=== PATIENT | male | born 1960 | race Caucasian/White ===

== ENCOUNTER → 2017-07-07 | Outpatient (CLI) | payer OTHER ==
[2014-06-02 08:48] VITALS: BP 135/92
[~2017-07-07] MED LIST: ASPIR LOW81 MG PO; FISH OIL1 IU PO; GLUCOSAMINE/CHONDROI PO
== END ==
LOC: LAB 15:52
DX: R19.7 Diarrhea, unspecified (principal); R68.81 Early satiety; R63.4 Abnormal weight loss

== ENCOUNTER → 2019-01-11 | Outpatient (CLI) | payer OTHER ==
[2014-06-02 08:48] VITALS: BP 135/92
[2019-01-11 07:56] LABS: EOS # 0.1 (0.04-0.40); EOS % 2.1 % (0.0-4.0); HEMATOCRIT 42.3 % (42.0-52.0); HEMOGLOBIN 13.6 g/dL (13.5-18.0); LYMPH# 1.7 (1.50-4.00); MEAN CELL VOLUME 88 fl (78-100); MEAN CORPUSCULAR HEMOGLOBIN 28 pg (27-31); MEAN CORPUSCULAR HGB CONC 32 g/dL (33-37); MEAN PLATELET VOLUME 9.4 fl (7.4-10.4); MONO # 0.8 (0.20-0.80); PLATELET COUNT 281 K/mm3 (130-400); RED BLOOD COUNT 4.82 M/mm3 (4.20-5.60); RED CELL DISTRIBUTION WIDTH 13.8 % (11.5-14.5); WHITE BLOOD COUNT 6.7 K/mm3 (4.8-10.8)
[2019-01-11 08:15] LABS: ALBUMIN 4.2 g/dL (3.5-5.0); CALCIUM 8.9 mg/dL (8.4-10.2); POTASSIUM 4.5 mmol/L (3.6-5.0); TOTAL BILIRUBIN 0.5 mg/dL (0.2-1.3); TOTAL PROTEIN 7.6 g/dL (6.3-8.2)
[2019-01-11 09:09] LABS: ERYTHROCYTE SEDIMENTATION RATE 19 mm/hr (0-20)
[2019-01-12 02:41] LABS: TESTOSTERONE 702 ng/dL (221-716)
== END ==
LOC: LAB 07:28
PROVIDERS: Internal Medicine
DX: Z12.5 Encounter for screening for malignant neoplasm of prostate (principal); Z12.11 Encounter for screening for malignant neoplasm of colon; Z00.00 Encounter for general adult medical examination without abnormal findings; R19.7 Diarrhea, unspecified

== ENCOUNTER → 2020-01-09 | Outpatient (CLI) | payer OTHER ==
[2014-06-02 08:48] VITALS: BP 135/92
[2020-01-09 09:49] LABS: EOS # 0.2 (0.04-0.40); EOS % 2.5 % (0.0-4.0); HEMATOCRIT 42.6 % (42.0-52.0); HEMOGLOBIN 13.1 g/dL (13.5-18.0); MEAN CELL VOLUME 85 fl (78-100); MEAN CORPUSCULAR HEMOGLOBIN 26 pg (27-31); MEAN CORPUSCULAR HGB CONC 31 g/dL (33-37); MEAN PLATELET VOLUME 9.6 fl (7.4-10.4); MONO # 0.7 (0.20-0.80); NEU # 3.5 (1.40-6.50); PLATELET COUNT 313 K/mm3 (130-400); RED BLOOD COUNT 5.03 M/mm3 (4.20-5.60); WHITE BLOOD COUNT 6.3 K/mm3 (4.8-10.8)
[2020-01-09 10:52] LABS: POTASSIUM 4.1 mmol/L (3.5-5.1)
[2020-01-09 10:53] LABS: CALCIUM 8.5 mg/dL (8.3-10.5)
[2020-01-09 10:55] LABS: TOTAL PROTEIN 7.4 g/dL (6.4-8.3)
[2020-01-09 10:56] LABS: TOTAL BILIRUBIN 0.3 mg/dL (0.2-1.2)
[2020-01-09 11:02] LABS: MAGNESIUM 2.05 mg/dL (1.60-2.60)
[2020-01-09 11:59] LABS: PROTHROMBIN TIME 9.1 SECONDS (9.0-12.0); URINE APPEARANCE HAZY; URINE BILIRUBIN NEGATIVE (NEGATIVE); URINE BLOOD NEGATIVE (NEGATIVE); URINE COLOR YELLOW; URINE GLUCOSE NEGATIVE (NEGATIVE); URINE KETONE NEGATIVE (NEGATIVE); URINE LEUKOCYTE ESTERASE NEGATIVE (NEGATIVE); URINE NITRATE NEGATIVE (NEGATIVE); URINE PROTEIN(semi-quant) TRACE mg/dL (NEGATIVE); URINE UROBILINOGEN NORMAL (NORMAL)
[2020-01-09 12:00] LABS: URINE MUCUS PRESENT (NOT PRESENT)
== END ==
LOC: AMSURD 07:32 → RAD 07:32 → LAB 07:32
PROVIDERS: Internal Medicine
DX: Z01.818 Encounter for other preprocedural examination (principal); M19.012 Primary osteoarthritis, left shoulder; M19.011 Primary osteoarthritis, right shoulder

== ENCOUNTER 2020-04-20 10:30 | Outpatient (RCR) | payer OTHER ==
[2014-06-02 08:48] VITALS: BP 135/92
== END 2020-04-22 | disposition still patient (30) ==
LOC: PT
DX: M75.102 Unspecified rotator cuff tear or rupture of left shoulder, not specified as traumatic (principal)

== ENCOUNTER 2020-05-17 08:30 | Outpatient (RCR) | payer OTHER ==
[2014-06-02 08:48] VITALS: BP 135/92
== END 2020-07-23 | disposition still patient (30) ==
LOC: PT
DX: M75.102 Unspecified rotator cuff tear or rupture of left shoulder, not specified as traumatic (principal)

== ENCOUNTER → 2020-10-25 | Outpatient (CLI) | payer OTHER ==
[2014-06-02 08:48] VITALS: BP 135/92
[2020-10-25 10:22] LABS: ALBUMIN 4.2 g/dL (3.4-4.8); POTASSIUM 4.7 mmol/L (3.5-5.1)
[2020-10-25 10:23] LABS: CALCIUM 9.8 mg/dL (8.3-10.5)
[2020-10-25 10:24] LABS: TOTAL PROTEIN 7.5 g/dL (6.2-8.1)
[2020-10-25 10:25] LABS: HEMATOCRIT 40.9 % (42.0-52.0); MEAN CELL VOLUME 84 fl (78-100); MEAN CORPUSCULAR HEMOGLOBIN 27 pg (27-31); MEAN CORPUSCULAR HGB CONC 32 g/dL (33-37); MEAN PLATELET VOLUME 9.2 fl (7.4-10.4); PLATELET COUNT 352 K/mm3 (130-400); RED BLOOD COUNT 4.86 M/mm3 (4.20-5.60); RED CELL DISTRIBUTION WIDTH 13.3 % (11.5-14.5); WHITE BLOOD COUNT 7.7 K/mm3 (4.8-10.8)
[2020-10-25 10:26] LABS: TOTAL BILIRUBIN 0.4 mg/dL (0.2-1.2)
[2020-10-25 10:31] LABS: MAGNESIUM 2.13 mg/dL (1.60-2.60)
[2020-10-25 10:47] LABS: LYMPHOCYTE 32 % (20-51); MONOCYTE 7 % (3-10); NEUTROPHILS 57 % (42-75)
== END ==
LOC: AMSURD 09:54
PROVIDERS: Internal Medicine
DX: Z01.818 Encounter for other preprocedural examination (principal)

== ENCOUNTER → 2021-10-08 | Outpatient (CLI) | payer OTHER ==
[2021-10-08 15:35] LABS: BASO # 0.04 K/mm3 (0.02-0.10); EOS # 0.08 K/mm3 (0.04-0.40); EOS % 0.9 % (0.0-4.0); HEMATOCRIT 38.8 % (42.0-52.0); HEMOGLOBIN 12.2 g/dL (13.5-18.0); LYMPH# 2.54 K/mm3 (1.50-4.00); MEAN CELL VOLUME 84 fl (78-100); MEAN CORPUSCULAR HEMOGLOBIN 27 pg (27-31); MEAN CORPUSCULAR HGB CONC 31 g/dL (33-37); MEAN PLATELET VOLUME 8.1 fl (7.4-10.4); MONO # 0.94 K/mm3 (0.20-0.80); NEU # 5.08 K/mm3 (1.40-6.50); PLATELET COUNT 428 K/mm3 (130-400); RED CELL DISTRIBUTION WIDTH 16.6 % (11.5-14.5); WHITE BLOOD COUNT 8.7 K/mm3 (4.8-10.8)
[2021-10-08 15:45] LABS: POTASSIUM 4.5 mmol/L (3.5-5.1)
[2021-10-08 15:46] LABS: CALCIUM 9.4 mg/dL (8.3-10.5)
[2021-10-08 15:47] LABS: TOTAL PROTEIN 7.3 g/dL (6.2-8.1)
[2021-10-08 15:49] LABS: TOTAL BILIRUBIN 0.3 mg/dL (0.2-1.2)
[2021-10-08 15:53] LABS: DIGOXIN 0.6 ng/mL (0.8-2.0)
[2021-10-08 15:54] LABS: MAGNESIUM 2.25 mg/dL (1.60-2.60)
== END ==
LOC: LAB 15:25
PROVIDERS: Internal Medicine
DX: I48.20 Chronic atrial fibrillation, unspecified (principal)

== ENCOUNTER → 2022-01-24 | Outpatient (CLI) | payer OTHER | LOC: RAD 09:47 | DX: N13.30 Unspecified hydronephrosis (principal) ==

== ENCOUNTER → 2022-07-22 | Outpatient (CLI) | payer OTHER ==
[2022-07-22 14:57] LABS: URINE APPEARANCE HAZY; URINE BILIRUBIN NEGATIVE (NEGATIVE); URINE BLOOD 250 ery/uL (NEGATIVE); URINE COLOR YELLOW; URINE GLUCOSE NEGATIVE (NEGATIVE); URINE KETONE NEGATIVE (NEGATIVE); URINE LEUKOCYTE ESTERASE TRACE (NEGATIVE); URINE NITRATE NEGATIVE (NEGATIVE); URINE PROTEIN(semi-quant) 2+ (NEGATIVE); URINE UROBILINOGEN NORMAL (NORMAL)
[2022-07-22 14:59] LABS: URINE MUCUS PRESENT (NOT PRESENT)
== END ==
LOC: LAB 14:18
PROVIDERS: Nurse Practitioner
DX: R31.9 Hematuria, unspecified (principal)

== ENCOUNTER → 2023-12-30 | Outpatient (CLI) | payer BC | LOC: RAD 09:21 | DX: R10.11 Right upper quadrant pain (principal) ==

== ENCOUNTER → 2024-09-20 | Outpatient (CLI) | payer OTHER, MEDICARE ==
[2024-09-20 11:42] LABS: BASO # 0.03 K/mm3 (0.02-0.10); EOS # 0.29 K/mm3 (0.04-0.40); EOS % 4.1 % (0.0-4.0); HEMATOCRIT 44.2 % (42.0-52.0); HEMOGLOBIN 14.6 g/dL (13.5-18.0); LYMPH# 1.94 K/mm3 (1.50-4.00); MEAN CELL VOLUME 92 fl (78-100); MEAN CORPUSCULAR HEMOGLOBIN 30 pg (27-31); MEAN CORPUSCULAR HGB CONC 33 g/dL (33-37); MEAN PLATELET VOLUME 8.6 fl (7.4-10.4); MONO # 0.67 K/mm3 (0.20-0.80); NEU # 4.19 K/mm3 (1.40-6.50); PLATELET COUNT 259 K/mm3 (130-400); RED BLOOD COUNT 4.82 M/mm3 (4.20-5.60); RED CELL DISTRIBUTION WIDTH 13.4 % (11.5-14.5); WHITE BLOOD COUNT 7.1 K/mm3 (4.8-10.8)
[2024-09-20 11:48] LABS: ALBUMIN 4.2 g/dL (3.4-4.8)
[2024-09-20 11:49] LABS: CALCIUM 9.8 mg/dL (8.3-10.5)
[2024-09-20 11:50] LABS: TOTAL PROTEIN 7.2 g/dL (6.2-8.1)
[2024-09-20 11:52] LABS: TOTAL BILIRUBIN 0.3 mg/dL (0.2-1.2)
[2024-09-20 11:53] LABS: PH-URINE 5.5 (5.0 - 8.0); URINE APPEARANCE CLEAR (CLEAR); URINE BILIRUBIN NEGATIVE (NEGATIVE); URINE BLOOD NEGATIVE (NEGATIVE); URINE COLOR YELLOW (YELLOW); URINE GLUCOSE NEGATIVE (NEGATIVE); URINE KETONE NEGATIVE (NEGATIVE); URINE LEUKOCYTE ESTERASE NEGATIVE (NEGATIVE); URINE MUCUS PRESENT (NOT PRESENT); URINE NITRATE NEGATIVE (NEGATIVE); URINE PROTEIN(semi-quant) NEGATIVE (NEGATIVE); URINE WBC 0-1 /hpf (0-3)
[2024-09-20 11:57] LABS: MAGNESIUM 2.3 mg/dL (1.60-2.60)
== END ==
LOC: LAB 11:25
PROVIDERS: Internal Medicine
DX: Z12.5 Encounter for screening for malignant neoplasm of prostate (principal); I48.91 Unspecified atrial fibrillation; E78.2 Mixed hyperlipidemia; F52.21 Male erectile disorder; R73.03 Prediabetes

== ENCOUNTER → 2024-11-07 | Outpatient (CLI) | payer OTHER, MEDICARE ==
[2024-11-07 17:09] LABS: BASO # 0.03 K/mm3 (0.02-0.10); EOS % 2.4 % (0.0-4.0); HEMATOCRIT 44.4 % (42.0-52.0); HEMOGLOBIN 14.5 g/dL (13.5-18.0); MEAN CELL VOLUME 92 fl (78-100); MEAN CORPUSCULAR HEMOGLOBIN 30 pg (27-31); MEAN CORPUSCULAR HGB CONC 33 g/dL (33-37); MEAN PLATELET VOLUME 8.3 fl (7.4-10.4); MONO # 0.84 K/mm3 (0.20-0.80); PLATELET COUNT 347 K/mm3 (130-400); RED BLOOD COUNT 4.81 M/mm3 (4.20-5.60); RED CELL DISTRIBUTION WIDTH 12.8 % (11.5-14.5); WHITE BLOOD COUNT 8.2 K/mm3 (4.8-10.8)
[2024-11-07 17:13] LABS: ALBUMIN 4.1 g/dL (3.4-4.8)
[2024-11-07 17:14] LABS: CALCIUM 9.4 mg/dL (8.3-10.5)
[2024-11-07 17:15] LABS: TOTAL PROTEIN 7.2 g/dL (6.2-8.1)
[2024-11-07 17:17] LABS: TOTAL BILIRUBIN 0.2 mg/dL (0.2-1.2)
[2024-11-07 17:18] LABS: PH-URINE 5.5 (5.0 - 8.0); URINE APPEARANCE CLEAR (CLEAR); URINE COLOR YELLOW (YELLOW); URINE PROTEIN(semi-quant) 1+ (NEGATIVE)
[2024-11-07 17:19] LABS: URINE BILIRUBIN 1+ (NEGATIVE); URINE BLOOD NEGATIVE (NEGATIVE); URINE GLUCOSE NEGATIVE (NEGATIVE); URINE KETONE 1+ (NEGATIVE); URINE LEUKOCYTE ESTERASE NEGATIVE (NEGATIVE); URINE MUCUS PRESENT (NOT PRESENT); URINE NITRATE NEGATIVE (NEGATIVE)
[2024-11-07 17:21] LABS: PROTHROMBIN TIME 9.4 SECONDS (9.0-12.0)
[2024-11-07 17:22] LABS: MAGNESIUM 2.14 mg/dL (1.60-2.60)
== END ==
LOC: LAB 16:25
PROVIDERS: Internal Medicine
DX: Z01.810 Encounter for preprocedural cardiovascular examination (principal); Z01.811 Encounter for preprocedural respiratory examination